=== PATIENT | female | born 1990 | race African-American/Black ===

== ENCOUNTER 2018-03-20 13:45 | Emergency (ER) | payer SELFPAY ==
[2018-03-20] MEDS: IV NORMAL SALINE 1000ML BAG 1,000 ML IV (14:30)
[2018-03-20 14:47] LABS: ADD MAN DIFF? NO
[2018-03-20 14:50] LABS: BASO # 0.1 x10^3/uL (0.0-0.2); BASO % 1 % (0-3); EOS % 0 % (0-3); HEMOGLOBIN 8.1 g/dL (12.0-15.5); LYMPH # 2.3 x10^3/uL (1.0-4.8); LYMPH % 38 % (24-48); MEAN CORPUSCULAR HEMOGLOBIN 18 pg (25-35); MEAN CORPUSCULAR HGB CONC 30 g/dL (31-37); MEAN CORPUSCULAR VOLUME 60 fL (79-100); MONO # 0.5 x10^3/uL (0.0-1.1); MONO % 9 % (0-9); NEUT # 3.1 x10^3uL (1.8-7.7); NEUT % 52 % (31-73); PLATELET COUNT 366 x10^3/uL (140-400); RED CELL DISTRIBUTION WIDTH 19.3 % (11.5-14.5); WHITE BLOOD COUNT 5.9 x10^3/uL (4.0-11.0)
[2018-03-20 14:52] LABS: URINE HCG POC HCG NEGATIVE (Negative)
[2018-03-20 14:59] LABS: BILIRUBIN,URINE NEGATIVE (NEG); CLARITY,URINE CLEAR; COLOR,URINE YELLOW; GLUCOSE,URINE NEGATIVE (NEG); NITRITE,URINE NEGATIVE (NEG); PH,URINE 6.5; PROTEIN,URINE NEGATIVE (NEG-TRACE); UROBILINOGEN,URINE 0.2 mg/dL (0.2 mg/dL)
[2018-03-20 15:01] LABS: ANION GAP 10 (6-14); BLOOD UREA NITROGEN 6 mg/dL (7-20); CARBON DIOXIDE 25 mmol/L (21-32); CHLORIDE 104 mmol/L (98-107); CREATININE 0.7 mg/dL (0.6-1.0); GFR 120.6; GLUCOSE 87 mg/dL (70-99); POTASSIUM 3.9 mmol/L (3.5-5.1); SODIUM 139 mmol/L (136-145)
[2018-03-20 15:06] LABS: AMPHETAMINE/METHAMPHETAMINE NEG (NEG); BARBITURATES NEG (NEG); BENZODIAZEPINES NEG (NEG); CANNABINOIDS NEG (NEG); COCAINE NEG (NEG); ETHANOL, URINE NEG (NEG); METHADONE NEG (NEG); OPIATES NEG (NEG); PHENCYCLIDINE NEG (NEG)
[2018-03-20 15:25] LABS: BACTERIA,URINE MOD /HPF (0-FEW); RBC,URINE 0 /HPF (0-2); SQUAMOUS EPITHELIAL CELL,UR MANY /LPF
[2018-03-20 15:26] LABS: YEAST,URINE PRESENT /HPF
[2018-03-20] MEDS: KETOROLAC 30 MG/ML INJ. IV (15:28)
[2018-03-20] MEDS: ONDANSETRON PF 4 MG/2 ML VIAL. IV (15:28)
[2018-03-20] MEDS: diphenhydrAMINE HCL 25 MG CAPSULE PO (15:28)
[2018-03-20 16:01] LABS: ANISOCYTOSIS SLIGHT; HYPOCHROMIA MARKED; MICROCYTOSIS MARKED; PLT ESTIMATE ADEQUATE (ADEQUATE)
== END 2018-03-20 16:50 | disposition home or self-care (01) ==
LOC: ER 13:45
DX: G43.009 Migraine without aura, not intractable, without status migrainosus (principal); R03.0 Elevated blood-pressure reading, without diagnosis of hypertension; D64.9 Anemia, unspecified; G80.9 Cerebral palsy, unspecified
CPT/HCPCS: 36415; 80048; 80307; 81001; 81025; 85025; 96361; 96374; 96375; 99284; J1885; J2405; J7030; Q0163

== ENCOUNTER 2018-12-31 13:12 | Emergency (ER) | payer SELFPAY ==
[~2018-12-31] VITALS: Ht 165.1 cm; Wt 88.0 kg
[~2018-12-31 13:12] MED LIST: SUMA50TA3 PO
[2018-12-31] MEDS: fentaNYL PF VIAL 100 MCG/2 ML VIAL IV ONE (14:15)
[2018-12-31 14:29] LABS: BILIRUBIN,URINE NEGATIVE (NEG); CLARITY,URINE CLEAR; COLOR,URINE YELLOW; NITRITE,URINE NEGATIVE (NEG); PH,URINE 7.5; PROTEIN,URINE NEGATIVE (NEG-TRACE); UROBILINOGEN,URINE 0.2 mg/dL (0.2 mg/dL)
[2018-12-31] MEDS: ONDANSETRON PF 4 MG/2 ML VIAL. IV ONE (14:36)
[2018-12-31 14:38] LABS: BACTERIA,URINE FEW /HPF (0-FEW); RBC,URINE 0 /HPF (0-2); SQUAMOUS EPITHELIAL CELL,UR MANY /LPF; WBC,URINE 0 /HPF (0-4)
[2018-12-31] MEDS: IOHEXOL 240 MG/ML 50ML VIAL. PO ONE (14:45)
[2018-12-31] MEDS: IOHEXOL 300 MG/ML 100ML VIAL. IV ONE (14:45)
[2018-12-31 14:57] LABS: BASO % 0 % (0-3); EOS % 1 % (0-3); HEMATOCRIT 30.7 % (36.0-47.0); HEMOGLOBIN 9.2 g/dL (12.0-15.5); LYMPH # 2.5 x10^3/uL (1.0-4.8); LYMPH % 47 % (24-48); MEAN CORPUSCULAR HEMOGLOBIN 20 pg (25-35); MEAN CORPUSCULAR HGB CONC 30 g/dL (31-37); MEAN CORPUSCULAR VOLUME 67 fL (79-100); MONO # 0.5 x10^3/uL (0.0-1.1); MONO % 9 % (0-9); NEUT # 2.3 x10^3uL (1.8-7.7); NEUT % 43 % (31-73); PLATELET COUNT 324 x10^3/uL (140-400); RED BLOOD COUNT 4.58 x10^6/uL (3.50-5.40); RED CELL DISTRIBUTION WIDTH 22.6 % (11.5-14.5); WHITE BLOOD COUNT 5.4 x10^3/uL (4.0-11.0)
[2018-12-31 15:21] LABS: CALCIUM 8.8 mg/dL (8.5-10.1); CREATININE 0.6 mg/dL (0.6-1.0); POTASSIUM 3.6 mmol/L (3.5-5.1)
[2018-12-31 15:24] LABS: HYPOCHROMIA MARKED; PLT ESTIMATE ADEQUATE (ADEQUATE)
[2018-12-31 15:25] LABS: ANISOCYTOSIS SLIGHT; MICROCYTOSIS MARKED
[2018-12-31 15:26] LABS: SCHISTOCYTES OCC
[2018-12-31 15:27] LABS: ALBUMIN 3.6 g/dL (3.4-5.0); ALBUMIN/GLOBULIN RATIO 0.8 (1.0-1.7); TOTAL BILIRUBIN 0.2 mg/dL (0.2-1.0); TOTAL PROTEIN 8.3 g/dL (6.4-8.2)
--- NOTE | 2018-12-31 16:16 | RAD ---
PQRS Compliance statement: One or more of the following individualized dose reduction techniques were utilized for this examination: 1. Automated exposure control. 2. Adjustment of the mA and/or kV according to patient size. 3. Use of iterative reconstruction technique. Indication:RLQ PAIN, [id number] 75ML, NO PRIORS TECHNIQUE: CT abdomen and pelvis with IV contrast with multiplanar reformats. COMPARISON: None FINDINGS: Heart is normal in size. No pericardial or pleural effusion. Clear lung bases. Liver, spleen, gallbladder, pancreas, adrenals and kidneys are within normal limits. No enlarged retroperitoneal or pelvic adenopathy. No free pelvic fluid or ascites. Normal appendix. No bowel obstruction. 4.0 x 3.7 cm right and 3.7 x 3.2 cm left ovarian low attenuating lesions are seen. Uterus is present. Urinary bladder demonstrates no radiopaque stone. No pneumoperitoneum. No suspicious bony lesion. IMPRESSION: 1. No nephrolithiasis or hydronephrosis. 2. Normal appendix. 3. Bilateral ovarian lesions most likely simple cysts. Electronically signed by: Yunior Roy DO (12/31/2018 4:13 PM) [facility]
[2018-12-31] MEDS ORDERED: MELO7.5T5 PO (16:21)
--- NOTE | 2018-12-31 16:21 | PHYS DOC ---
Past Medical History Past Medical History: Other Additional Past Medical Histor: Cerebral Palsy Past Surgical History: Other Additional Past Surgical Histo: Multiple orthopedic surgeries r/t cerebral palsy Alcohol Use: Occasionally Drug Use: None Adult General Chief Complaint Chief Complaint: PELVIC PAIN HPI HPI Patient is a 28 year old female who presents with RLQ pain x 1 week. She has not had her appendix removed. She denies dysuria or constipation. She denies fever. Review of Systems Review of Systems Constitutional: Denies fever or chills [] Eyes: Denies change in visual acuity, redness, or eye pain [] HENT: Denies nasal congestion or sore throat [] Respiratory: Denies cough or shortness of breath [] Cardiovascular: No additional information not addressed in HPI [] GI: See HPI : Denies dysuria or hematuria [] Musculoskeletal: Denies back pain or joint pain [] Integument: Denies rash or skin lesions [] Neurologic: Denies headache, focal weakness or sensory changes [] Endocrine: Denies polyuria or polydipsia [] All other systems were reviewed and found to be within normal limits, except as documented in this note. Current Medications Current Medications Current Medications Medications (Trade) Dose Ordered Sig/Justin Start Time Stop Time Status Last Admin Dose Admin Fentanyl Citrate (Fentanyl 2ml Vial) 50 mcg 1X ONCE 12/31/18 14:15 12/31/18 14:17 DC 12/31/18 14:15 50 MCG Iohexol (Omnipaque 240 Mg/ml) 30 ml 1X ONCE 12/31/18 14:45 12/31/18 14:46 DC 12/31/18 14:45 30 ML Iohexol (Omnipaque 300 Mg/ml) 75 ml 1X ONCE 12/31/18 14:45 12/31/18 14:46 DC 12/31/18 14:45 75 ML Ondansetron HCl (Zofran) 4 mg 1X ONCE 12/31/18 14:15 12/31/18 14:17 DC 12/31/18 14:36 4 MG Allergies Allergies Allergies Coded Allergies Type Severity Reaction Last Updated Verified No Known Drug Allergies 03/20/18 No Physical Exam Physical Exam Constitutional: Well developed, well nourished, no acute distress, non-toxic appearance. [] Cardiovascular:Heart rate regular rhythm, no murmur [] Lungs & Thorax: Bilateral breath sounds clear to auscultation [] Abdomen: Bowel sounds normal, soft, rlq tenderness with palpation, no masses, no pulsatile masses. [] Skin: Warm, dry, no erythema, no rash. [] Back: No tenderness, no CVA tenderness. [] Extremities: No tenderness, no cyanosis, no clubbing, ROM intact, no edema. [] Neurologic: Alert and oriented X 3, normal motor function, normal sensory function, no focal deficits noted. [] Psychologic: Affect normal, judgement normal, mood normal. [] Current Patient Data Vital Signs Lab Values Laboratory Tests Test 12/31/18 13:55 12/31/18 14:15 12/31/18 14:50 Urine Collection Type Unknown Urine Color Yellow Urine Clarity Clear Urine pH 7.5 Urine Specific [place] 1.010 Urine Protein Negative mg/dL (NEG-TRACE) Urine Glucose (UA) Negative mg/dL (NEG) Urine Ketones (Stick) Negative mg/dL (NEG) Urine Blood Negative (NEG) Urine Nitrite Negative (NEG) Urine Bilirubin Negative (NEG) Urine Urobilinogen Dipstick 0.2 mg/dL (0.2 mg/dL) Urine Leukocyte Esterase Negative (NEG) Urine RBC 0 /HPF (0-2) Urine WBC 0 /HPF (0-4) Urine Squamous Epithelial Cells Many /LPF Urine Bacteria Few /HPF (0-FEW) POC Urine HCG, Qualitative Hcg negative (Negative) White Blood Count 5.4 x10^3/uL (4.0-11.0) Red Blood Count 4.58 x10^6/uL (3.50-5.40) Hemoglobin 9.2 g/dL (12.0-15.5) L Hematocrit 30.7 % (36.0-47.0) L Mean Corpuscular Volume 67 fL (79-100) L Mean Corpuscular Hemoglobin 20 pg (25-35) L Mean Corpuscular Hemoglobin Concent 30 g/dL (31-37) L Red Cell Distribution Width 22.6 % (11.5-14.5) H Platelet Count 324 x10^3/uL (140-400) Neutrophils (%) (Auto) 43 % (31-73) Lymphocytes (%) (Auto) 47 % (24-48) Monocytes (%) (Auto) 9 % (0-9) Eosinophils (%) (Auto) 1 % (0-3) Basophils (%) (Auto) 0 % (0-3) Neutrophils # (Auto) 2.3 x10^3uL (1.8-7.7) Lymphocytes # (Auto) 2.5 x10^3/uL (1.0-4.8) Monocytes # (Auto) 0.5 x10^3/uL (0.0-1.1) Eosinophils # (Auto) 0.0 x10^3/uL (0.0-0.7) Basophils # (Auto) 0.0 x10^3/uL (0.0-0.2) Platelet Estimate Adequate (ADEQUATE) Hypochromasia Marked Anisocytosis Slight Microcytosis Marked Schistocytes Occ Sodium Level 140 mmol/L (136-145) Potassium Level 3.6 mmol/L (3.5-5.1) Chloride Level 102 mmol/L (98-107) Carbon Dioxide Level 29 mmol/L (21-32) Anion Gap 9 (6-14) Blood Urea Nitrogen 6 mg/dL (7-20) L Creatinine 0.6 mg/dL (0.6-1.0) Estimated GFR (Cockcroft-Gault) 143.0 BUN/Creatinine Ratio 10 (6-20) Glucose Level 86 mg/dL (70-99) Calcium Level 8.8 mg/dL (8.5-10.1) Total Bilirubin 0.2 mg/dL (0.2-1.0) Aspartate Amino Transferase (AST) 18 U/L (15-37) Alanine Aminotransferase (ALT) 16 U/L (14-59) Alkaline Phosphatase 66 U/L (46-116) Total Protein 8.3 g/dL (6.4-8.2) H Albumin 3.6 g/dL (3.4-5.0) Albumin/Globulin Ratio 0.8 (1.0-1.7) L Laboratory Tests 12/31/18 14:50 Laboratory Tests 12/31/18 14:50 EKG EKG [] Radiology/Procedures Radiology/Procedures []PATIENT: ABELINO LEONARD LACCOUNT: [id number]#: [id number] : 1990 LOCATION: ER AGE: 28 SEX: F EXAM STATUS: REG ER ORD. PHYSICIAN: MARIELLE GUSMAN APRN REASON: rlq pain x 1 week PROCEDURE: CT ABD PELV W/ORAL&IV CONTRAST PQRS Compliance statement: One or more of the following individualized dose reduction techniques were utilized for this examination: 1. Automated exposure control. 2. Adjustment of the mA and/or kV according to patient size. 3. Use of iterative reconstruction technique. Indication:RLQ PAIN, [id number] 75ML, NO PRIORS TECHNIQUE: CT abdomen and pelvis with IV contrast with multiplanar reformats. COMPARISON: None FINDINGS: Heart is normal in size. No pericardial or pleural effusion. Clear lung bases. Liver, spleen, gallbladder, pancreas, adrenals and kidneys are within normal limits. No enlarged retroperitoneal or pelvic adenopathy. No free pelvic fluid or ascites. Normal appendix. No bowel obstruction. 4.0 x 3.7 cm right and 3.7 x 3.2 cm left ovarian low attenuating lesions are seen. Uterus is present. Urinary bladder demonstrates no radiopaque stone. No pneumoperitoneum. No suspicious bony lesion. IMPRESSION: 1. No nephrolithiasis or hydronephrosis. 2. Normal appendix. 3. Bilateral ovarian lesions most likely simple cysts. Electronically signed by: Yunior Kaur DO (12/31/2018 4:13 PM) [facility] DICTATED and SIGNED BY: YUNIOR KAUR DO DATE: 12/31/18 1614 Course & Med Decision Making Course & Med Decision Making Pertinent Labs and Imaging studies reviewed. (See chart for details) []Imaging is positive for an ovarian cyst. Dragon Disclaimer Dragon Disclaimer This electronic medical record was generated, in whole or in part, using a voice recognition dictation system. Departure Departure Impression: Primary Impression: Ovarian cyst Disposition: HOME, SELF-CARE Condition: STABLE Referrals: NO PCP (PCP) Patient Instructions: Ovarian Cyst Additional Instructions: Take the medication as directed. Follow-up with your rental car porter for further e valuation of her ovarian cysts. If worsening return to the emergency department. Scripts Meloxicam (MOBIC) 7.5 Mg Tablet 1 TAB PO DAILY for ovarian cyst, #30 TAB 1 Refill Prov: MARIELLE GUSMAN APRN 12/31/18 MARIELLE GUSMAN APRN Dec 31, 2018 16:21
[2018-12-31 16:49] VITALS: BP 121/78
== END 2018-12-31 16:49 | disposition home or self-care (01) ==
LOC: ER 13:12
DX: N83.292 Other ovarian cyst, left side (principal); N83.291 Other ovarian cyst, right side
CPT/HCPCS: 36415; 74177; 80053; 81001; 81025; 85025; 96374; 96375; 99284; J2405; J3010; Q9966; Q9967